=== PATIENT | female | born 1990 | race American Indian/Alaskan Native ===

== ENCOUNTER 2020-02-25 00:43 | Observation (INO) | payer OTHER ==
[2020-02-25] MEDS ORDERED: ONDANSETRON 4 MG/2 ML INJ IV ONE (02:17)
--- NOTE | 2020-02-25 02:17 | Emergency Department Report ---
ED Abdominal Pain HPI - General Chief Complaint: Abdominal Pain Stated Complaint: VOMITING BLOOD PUI?: No Time Seen by Provider: 02/25/20 02:09 Source: patient Mode of arrival: Ambulatory Limitations: No Limitations - History of Present Illness Initial Comments: Patient is a 29-year-old female that presents emergency room with complaints of abdominal pain and nausea and vomiting and vomiting blood. Patient states she has vomited approximately 20 times. Patient states her nausea vomiting abdominal pain started yesterday. Patient states that her symptoms are worsening. Patient states she also began to vomit blood the last few times she vomited. Patient denies fever and chills. Patient states the abdominal pain is in her epigastric region. Patient states is nonradiating. Patient states she is unable to hold any fluids down. Patient denies recent travel. Patient denies recent international travel. Patient denies exposure to the novel coronavirus. Patient denies sick contacts. Patient denies fever and chills. Patient denies cough. Patient denies diarrhea. Patient denies coming in contact with anybody with symptoms of the novel coronavirus. MD Complaint: abdominal pain -: Sudden Location: epigastric Radiation: none Migration to: no migration Severity: severe Severity scale (0 -10): 10 Quality: stabbing Consistency: constant Improves With: rest Worsens With: eating, vomiting, movement Associated Symptoms: nausea, vomiting, hematemesis. denies: diarrhea, fever, chills, constipation, dysuria, hematochezia, melena, hematuria, anorexia, syncope - Related Data Home Medications Medication Instructions Recorded Confirmed Last Taken No Known Home Medications [No 02/25/20 02/25/20 Unknown Reported Home Medications] Allergies Allergy/AdvReac Type Severity Reaction Status Date / Time No Known Allergies Allergy Unverified 05/29/15 14:51 ED Review of Systems ROS: Stated complaint: VOMITING BLOOD Other details as noted in HPI Constitutional: denies: chills, fever Eyes: denies: eye pain, eye discharge, vision change ENT: denies: ear pain, throat pain Respiratory: denies: cough, shortness of breath, wheezing Cardiovascular: denies: chest pain, palpitations Endocrine: no symptoms reported Gastrointestinal: abdominal pain, nausea, vomiting, hematemesis. denies: diarrhea, constipation, melena, hematochezia Genitourinary: denies: urgency, dysuria, discharge Musculoskeletal: denies: back pain, joint swelling, arthralgia Skin: denies: rash, lesions Neurological: denies: headache, weakness, paresthesias Psychiatric: denies: anxiety, depression Hematological/Lymphatic: denies: easy bleeding, easy bruising ED Past Medical Hx - Past Medical History Previous Medical History?: Yes Hx HIV: Yes - Surgical History Past Surgical History?: No - Family History Family history: no significant - Social History Smoking Status: Never Smoker Substance Use Type: None - Medications Home Medications: Home Medications Medication Instructions Recorded Confirmed Last Taken Type No Known Home Medications [No 02/25/20 02/25/20 Unknown History Reported Home Medications] ED Physical Exam - General Limitations: No Limitations General appearance: alert, in no apparent distress - Head Head exam: Present: atraumatic, normocephalic - Eye Eye exam: Present: normal appearance - ENT ENT exam: Present: mucous membranes moist - Neck Neck exam: Present: normal inspection - Respiratory Respiratory exam: Present: normal lung sounds bilaterally. Absent: respiratory distress - Cardiovascular Cardiovascular Exam: Present: regular rate, normal rhythm. Absent: systolic murmur, diastolic murmur, rubs, gallop - GI/Abdominal GI/Abdominal exam: Present: soft, tenderness (Epigastric tenderness to palpation.), normal bowel sounds - Extremities Exam Extremities exam: Present: normal inspection - Back Exam Back exam: Present: normal inspection - Neurological Exam Neurological exam: Present: alert, oriented X3 - Psychiatric Psychiatric exam: Present: normal affect, normal mood - Skin Skin exam: Present: warm, dry, intact, normal color. Absent: rash ED Course Vital Signs 02/25/20 02/25/20 01:33 05:05 Temperature 97.9 F Pulse Rate 89 87 Respiratory 18 16 Rate Blood Pressure 127/85 Blood Pressure 125/87 [right arm] O2 Sat by Pulse 100 99 Oximetry - Reevaluation(s) Reevaluation #1: I discussed all results with patient. I discussed plan of care with patient. Patient agrees with plan of care and admission. Patient to be admitted to the hospitalist service. 02/25/20 04:45 - Consultations Consultation #1: I discussed case with GI, Dr. DECKER. Dr. DECKER wants patient to be admitted to the hospital service, IV PPI and n.p.o. now 02/25/20 04:34 Consultation #2: Hospitalist consulted for admission. Hospitalist to admit patient. 02/25/20 04:46 ED Medical Decision Making - Lab Data Result diagrams: 02/25/20 01:46 02/25/20 01:46 - Radiology Data Radiology results: report reviewed CT ABDOMEN AND PELVIS WITH CONTRAST HISTORY: Epigastric pain, nausea, vomiting COMPARISON: None TECHNIQUE: Routine abdominal and pelvic CT exam performed following intravenous contrast administration. Patient received 100 mL IV Omnipaque 300. All CT scans at this location are performed using CT dose reduction for ALARA by means of automated exposure control. FINDINGS: CT ABDOMEN: Lung Bases: No significant abnormality. Liver: No significant abnormality. Biliary: No significant abnormality. Spleen: No significant abnormality. Unenlarged. Pancreas: No significant abnormality. Adrenals: No significant abnormality. Kidneys: No significant abnormality. Lymphatics: No lymphadenopathy. Vasculature: No significant abnormality. Bowel/Peritoneum: No significant abnormality. No free air. No free fluid. Normal appendix. CT PELVIC: : Uterus and ovaries appear normal for age. There is a small amount of free fluid in the pelvis. Lymphatics: No lymphadenopathy. Osseous Structures: No aggressive appearing osseous lesions. Additional Findings: None IMPRESSION: 1. No acute findings. - Medical Decision Making Patient is a 29-year-old female that presents emergency room with complaints of epigastric pain and nausea and vomiting and vomiting blood. Patient states over the last few days, the patient is vomited 20-30 times. Patient states the last few times she vomited she had copious amounts of blood in her vomitus. Patient had labs done which were essentially unremarkable. Patient had a CT scan of the abdomen due to the amount of pain she had and the CT scan of the abdomen was negative for acute finding. Patient given Dilaudid in ER for pain. Patient given Zofran for nausea. Patient given fluids in the ER. I consulted GI on the patient's case and recommendations were received from GI. GI recommended Protonix IV, n.p.o., fluids and admission. Patient admitted to the hospitalist service for further evaluation treatment. - Differential Diagnosis Gastroenteritis, gastritis, epigastric pain, vomiting blood, n/v Critical Care Time: Yes Critical care time in (mins) excluding proc time.: 35 Critical care attestation.: If time is entered above; I have spent that time in minutes in the direct care of this critically ill patient, excluding procedure time. Critical Care Time: 35 minutes ED Disposition Clinical Impression: Dehydration Vomiting blood Qualifiers: Nausea presence: with nausea Qualified Code(s): K92.0 - Hematemesis Abdominal pain Qualifiers: Abdominal location: epigastric Qualified Code(s): R10.13 - Epigastric pain Nausea & vomiting Qualifiers: Vomiting type: unspecified Vomiting Intractability: intractable Qualified Code(s): R11.2 - Nausea with vomiting, unspecified Disposition: DC-09 OP ADMIT IP TO THIS HOSP Is pt being admited?: Yes Does the pt Need Aspirin: No Condition: Critical Time of Disposition: 04:47
[2020-02-25] MEDS ORDERED: ONDANSETRON 4 MG/2 ML INJ ONE (02:18)
[2020-02-25] MEDS ORDERED: SODIUM CHLORIDE 0.9% 1000 ML 1,000 ML IV ONE ×2 (02:18→04:47)
[2020-02-25 02:23] LABS: Basophils % (Auto) 0.1 % (0.0-1.8); Hematocrit 33.6 % (30.3-42.9); Hemoglobin 11.7 gm/dl (10.1-14.3); Lymphocytes # (Auto) 0.7 K/mm3 (1.2-5.4); Lymphocytes % (Auto) 10.1 % (13.4-35.0); Mean Corpuscular HGB Conc 35 % (30-34); Mean Corpuscular Volume 94 fl (79-97); Monocytes # (Auto) 0.2 K/mm3 (0.0-0.8); Monocytes % (Auto) 2.4 % (0.0-7.3); Platelet Count 275 K/mm3 (140-440); Red Blood Count 3.56 M/mm3 (3.65-5.03); Red Cell Distribution Width 14.1 % (13.2-15.2)
[2020-02-25] MEDS ORDERED: HYDROmorphone 1 MG/1 ML INJ IV ONE ×3 (02:45→04:06)
[2020-02-25 02:47] LABS: Alanine Aminotransferase 11 units/L (7-56); Albumin 4.4 g/dL (3.9-5); Blood Urea Nitrogen 11 mg/dL (7-17); Calcium 9.7 mg/dL (8.4-10.2); Hemolysis Index 0
[2020-02-25 02:51] LABS: BUN/Creatinine Ratio 18
--- NOTE | 2020-02-25 04:25 | Cat Scan Report ---
CT ABDOMEN AND PELVIS WITH CONTRAST HISTORY: Epigastric pain, nausea, vomiting COMPARISON: None TECHNIQUE: Routine abdominal and pelvic CT exam performed following intravenous contrast administrat ion. Patient received 100 mL IV Omnipaque 300. All CT scans at this location are performed using CT d ose reduction for ALARA by means of automated exposure control. FINDINGS: CT ABDOMEN: Lung Bases: No significant abnormality. Liver: No significant abnormality. Biliary: No significant abnormality. Spleen: No significant abnormality. Unenlarged. Pancreas: No significant abnormality. Adrenals: No significant abnormality. Kidneys: No significant abnormality. Lymphatics: No lymphadenopathy. Vasculature: No significant abnormality. Bowel/Peritoneum: No significant abnormality. No free air. No free fluid. Normal appendix. CT PELVIC: : Uterus and ovaries appear normal for age. There is a small amount of free fluid in the pelvis. Lymphatics: No lymphadenopathy. Osseous Structures: No aggressive appearing osseous lesions. Additional Findings: None IMPRESSION: 1. No acute findings. Signer Name: Alfred Hartman MD Signed: 02/25/2020 4:07 AM Workstation Name: [email or web address]
[2020-02-25 04:31] LABS: Bacteria,Urine 1+ /HPF (Negative); Bilirubin,Urine NEG (Negative); Blood,Urine SM (Negative); Color,Urine Red (Yellow); Mucus,Urine FEW /HPF; Protein,Urine <15 mg/dL mg/dL (Negative); Urobilinogen,Urine < 2.0 mg/dL (<2.0)
[2020-02-25] MEDS ORDERED: PANTOPRAZOLE 40 MG INJ IV ONE (04:47)
[2020-02-25] MEDS ORDERED: ACETAMINOPHEN 325 MG TAB PO PRN (05:34)
--- NOTE | 2020-02-25 05:46 | History and Physical Report ---
History of Present Illness Date of examination: 02/25/20 Date of admission: 02/25/20 04:47 Chief complaint: Nausea and Vomiting Vomiting Blood Abdominal pain History of present illness: 29-year-old -[place] female with known history of HIV with undetected vi ral load presents to the emergency room today complaining of nausea and vomiting with epigastric pain. Nausea vomiting is said to have started over the last 24 to 48 hours. She has had up to 20-30 episodes of vomiting. She is now having blood in her vomitus. Patient indicates that particular cup of coffee last night she just suddenly started vomiting. She denies any fever or chills, denies any sick contacts and no recent travel, no chest pain or shortness of breath, denies any diarrhea, denies any bright red blood per rectum. Patient denies any dizziness. Patient admits that she has been taking Goody powder for pain for a while. Last intake of Goody powder was 2 days ago. She has also indicated that she has had recurrent boils in her armpit over the years. The boils flares up especially when she is about to have her menstruation. She currently has a painful boil in her left armpit for which she has been taking the Goody powder for pain relief. Work-up in the emergency room today has been unremarkable. H&H has been stable. [employer] Operator has been consulted by the ER physician. Recommendation is to place patient on proton pump inhibitor and IV fluid. Past History Past Medical History: other (HIV positive. CD4 count unknwon.) Past Surgical History: No surgical history Social history: smoking (Occasionally) Family history: no significant family history Medications and Allergies Allergies Allergy/AdvReac Type Severity Reaction Status Date / Time No Known Allergies Allergy Unverified 05/29/15 14:51 Home Medications Medication Instructions Recorded Confirmed Last Taken Type No Known Home Medications [No 02/25/20 02/25/20 Unknown History Reported Home Medications] Active Meds: Active Medications Sodium Chloride (Nacl 0.9% 1000 Ml) 1,000 mls @ 250 mls/hr IV ONCE ONE Stop: 02/25/20 08:46 Last Admin: 02/25/20 04:58 Dose: 250 mls/hr Documented by: Review of Systems Constitutional: no fever, no chills Ears, nose, mouth and throat: no nasal congestion, no sore throat Cardiovascular: no chest pain, no palpitations Respiratory: no cough, no shortness of breath Gastrointestinal: abdominal pain (Epigastric), nausea, vomiting, hematemesis, no diarrhea, no BRBPR Genitourinary Female: no pelvic pain, no flank pain, no hematuria Musculoskeletal: no neck pain, no low back pain Integumentary: boils (In Axilla), no rash, no pruritis Neurological: no headaches, no confusion Psychiatric: no anxiety, no depression Exam - Constitutional Vitals: Temp Pulse Resp BP Pulse Ox 97.9 F 87 16 125/87 99 02/25/20 01:33 02/25/20 05:05 02/25/20 05:05 02/25/20 05:05 02/25/20 05:05 General appearance: Present: no acute distress, well-nourished - EENT Eyes: Present: PERRL, EOM intact. Absent: scleral icterus ENT: hearing intact, clear oral mucosa, dentition normal - Neck Neck: Present: supple, normal ROM - Respiratory Respiratory effort: normal Respiratory: bilateral: CTA - Cardiovascular Rhythm: regular Heart Sounds: Present: S1 & S2. Absent: gallop, systolic murmur, diastolic murmur, rub - Extremities Extremities: no ischemia, pulses intact, pulses symmetrical, No edema, Full ROM Peripheral Pulses: within normal limits - Abdominal General gastrointestinal: Present: soft, non-tender, non-distended, normal bowel sounds. Absent: mass - Integumentary Integumentary: Present: clear, warm, dry - Musculoskeletal Musculoskeletal: strength equal bilaterally - Psychiatric Psychiatric: appropriate mood/affect, intact judgment & insight, memory intact, cooperative - Neurologic Neurologic: CNII-XII intact, no focal deficits, moves all extremities - Additional findings Additional findings: Skin: Tender left axillary swelling.Firm. No obvious discharge. Results - Labs CBC & Chem 7: 02/25/20 01:46 02/25/20 01:46 Labs: Abnormal lab results 02/25/20 02/25/20 02/25/20 Range/Units 01:43 01:46 01:46 RBC 3.56 L (3.65-5.03) M/mm3 MCH 33 H (28-32) pg MCHC 35 H (30-34) % Lymph % (Auto) 10.1 L (13.4-35.0) % Lymph # (Auto) 0.7 L (1.2-5.4) K/mm3 Seg Neutrophils % 87.4 H (40.0-70.0) % Sodium 136 L (137-145) mmol/L Chloride 96.5 L (98-107) mmol/L Glucose 163 H (65-100) mg/dL Total Protein 10.4 H (6.3-8.2) g/dL Ur Specific [place] > 1.059 H (1.003-1.030) Assessment and Plan - Patient Problems (1) Upper GI hemorrhage Current Visit: Yes Status: Acute Plan to address problem: Possibly secondary to the intractable nausea and vomiting causing a Chika- Delaney tear versus use of Goody powder (NSAID). Patient made n.p.o. and placed on proton pump inhibitor. [employer] Operator-Dr. Tucker has been consulted (2) Nausea & vomiting Current Visit: Yes Status: Acute Qualifiers: Vomiting type: unspecified Vomiting Intractability: intractable Qualified Code(s): R11.2 - Nausea with vomiting, unspecified Plan to address problem: Patient placed on IV fluid and IV Zofran as needed. (3) Abdominal pain Current Visit: Yes Status: Acute Qualifiers: Abdominal location: epigastric Qualified Code(s): R10.13 - Epigastric pain Plan to address problem: Possibly secondary to gastritis and the accompanying nausea and vomiting . Patient placed on IV and adjust medication as needed. (4) Hidradenitis suppurativa Current Visit: Yes Status: Acute Plan to address problem: We will place patient on empiric IV antibiotics. We will place a consult to general surgery for evaluation. (5) History of HIV infection Current Visit: Yes Status: Acute Plan to address problem: CD4 count unknown. Patient indicates she has had undetected viral load. She goes to infectious disease clinic in [place] . (6) DVT prophylaxis Current Visit: Yes Status: Acute Plan to address problem: Patient on sequential compression device. (7) Full code status Current Visit: Yes Status: Acute
[2020-02-25] MEDS: HYDROmorphone 1 MG/1 ML INJ IV PRN ×3 (06:24→19:40)
[2020-02-25] MEDS: PIPERACIL/TAZOBACTA 4.5/NS 100 4.5 GM/100 ML VIAL IV SCH ×3 (06:25→21:19)
[2020-02-25] MEDS: ONDANSETRON 4 MG/2 ML INJ IV PRN ×2 (06:28→21:24)
[2020-02-25] MEDS: SODIUM CHLORIDE 0.9% 1000 ML 1,000 ML IV SCH ×2 (06:35→17:26)
--- NOTE | 2020-02-25 10:58 | Consultation ---
History of Present Illness Consult date: 02/25/20 Reason for consult: abdominal pain Chief complaint: Abdominal pain - History of present illness History of present illness: 29-year-old female with a history of peptic ulcer disease who presents to the em ergency room with complaints of epigastric abdominal pain, nausea, vomiting, diarrhea x1 day. The patient states that she often suffers from epigastric abdominal pain due to ulcer disease. This pain is sharp and intermittent and resolves quickly on its own. It does not radiate. However over the last 24 hours she states that the pain intensified and was accompanied by nausea and vomiting. There was also severe diarrhea at the same time. She denies melena or hematochezia. She does state that after multiple bouts of vomiting she noticed some blood streaking in her vomit which was dark red. That has now resolved. She states that she feels very hungry. Last EGD was 5 to 6 years ago. The patient does not take any medications for her ulcer. The patient also has a longstanding history of hidradenitis. She states that she sees a video operator at [facility] for this for the past several years. She has undergone multiple incision and drainage procedures. She states that the hidradenitis is exacerbated when she is on her menstrual cycle. She states that over the last several days the left axillary swelling has gotten much better. She states that the whole axilla and upper arm was swollen and now it is just a small area in the underarm. There was purulent drainage and now that has resolved. She denies any pain in the area. No fevers or chills. Past History Past Medical History: HIV/AIDS, other (Bilateral axillary hidradenitis) Past Surgical History: Other (Multiple bilateral axillary I&D for hidradenitis) Social history: smoking (Occasionally) Family history: no significant family history Medications and Allergies Allergies Allergy/AdvReac Type Severity Reaction Status Date / Time No Known Allergies Allergy Unverified 05/29/15 14:51 Home Medications Medication Instructions Recorded Confirmed Last Taken Type No Known Home Medications [No 02/25/20 02/25/20 Unknown History Reported Home Medications] Active Meds: Active Medications Acetaminophen (Tylenol) 650 mg PO Q4H PRN PRN Reason: Pain MILD(1-3)/Fever >100.5/[place] Hydromorphone HCl (Dilaudid) 0.5 mg IV Q3H PRN PRN Reason: Pain , Severe (7-10) Last Admin: 02/25/20 06:24 Dose: 0.5 mg Documented by: Sodium Chloride (Nacl 0.9% 1000 Ml) 1,000 mls @ 125 mls/hr IV DIRECT ALEX Last Admin: 02/25/20 06:35 Dose: 125 mls/hr Documented by: Piperacillin Sod/Tazobactam Sod (Zosyn/Ns 4.5gm/100ml) 4.5 gm in 100 mls @ 200 mls/hr IV Q8HR ALEX; Protocol Last Admin: 02/25/20 06:25 Dose: 200 mls/hr Documented by: Ondansetron HCl (Zofran) 4 mg IV Q8H PRN PRN Reason: Nausea And Vomiting Last Admin: 02/25/20 06:28 Dose: 4 mg Documented by: Sodium Chloride (Sodium Chloride Flush Syringe 10 Ml) 10 ml IV BID ALEX Sodium Chloride (Sodium Chloride Flush Syringe 10 Ml) 10 ml IV PRN PRN PRN Reason: LINE FLUSH Review of Systems All systems: negative (10 point ROS performed and negative except for that listed in HPI) Exam Vital Signs Temp Pulse Resp BP Pulse Ox 97.9 F 89 18 127/85 100 02/25/20 01:33 02/25/20 01:33 02/25/20 01:33 02/25/20 01:33 02/25/20 01:33 Narrative exam: Gen.: Awake, alert, oriented 3. No apparent distress ENT: Trachea midline. No lymphadenopathy. No scleral icterus or conjunctival pallor CV: S1, S2 present Respiratory: No audible wheezes Abdomen: Soft, nondistended, point TTP in epigastrum. No rebound, rigidity, guarding Extremities: No clubbing, cyanosis, edema. 1 cm area of fluctuance in the left axilla without surrounding induration or erythema. Minimal TTP. No drainage. Results - Labs 02/25/20 01:46 02/25/20 01:46 Abnormal lab results 02/25/20 02/25/20 02/25/20 Range/Units 01:43 01:46 01:46 RBC 3.56 L (3.65-5.03) M/mm3 MCH 33 H (28-32) pg MCHC 35 H (30-34) % Lymph % (Auto) 10.1 L (13.4-35.0) % Lymph # (Auto) 0.7 L (1.2-5.4) K/mm3 Seg Neutrophils % 87.4 H (40.0-70.0) % Sodium 136 L (137-145) mmol/L Chloride 96.5 L (98-107) mmol/L Glucose 163 H (65-100) mg/dL Total Protein 10.4 H (6.3-8.2) g/dL Ur Specific [place] > 1.059 H (1.003-1.030) Diabetes panel 02/25/20 Range/Units 01:46 Sodium 136 L (137-145) mmol/L Potassium 3.9 (3.6-5.0) mmol/L Chloride 96.5 L (98-107) mmol/L Carbon Dioxide 25 (22-30) mmol/L BUN 11 (7-17) mg/dL Creatinine 0.6 (0.6-1.2) mg/dL Glucose 163 H (65-100) mg/dL Calcium 9.7 (8.4-10.2) mg/dL AST 16 (5-40) units/L ALT 11 (7-56) units/L Alkaline Phosphatase 95 (35-129) units/L Total Protein 10.4 H (6.3-8.2) g/dL Albumin 4.4 (3.9-5) g/dL Calcium panel 02/25/20 Range/Units 01:46 Calcium 9.7 (8.4-10.2) mg/dL Albumin 4.4 (3.9-5) g/dL Pituitary panel 02/25/20 Range/Units 01:46 Sodium 136 L (137-145) mmol/L Potassium 3.9 (3.6-5.0) mmol/L Chloride 96.5 L (98-107) mmol/L Carbon Dioxide 25 (22-30) mmol/L BUN 11 (7-17) mg/dL Creatinine 0.6 (0.6-1.2) mg/dL Glucose 163 H (65-100) mg/dL Calcium 9.7 (8.4-10.2) mg/dL Adrenal panel 02/25/20 Range/Units 01:46 Sodium 136 L (137-145) mmol/L Potassium 3.9 (3.6-5.0) mmol/L Chloride 96.5 L (98-107) mmol/L Carbon Dioxide 25 (22-30) mmol/L BUN 11 (7-17) mg/dL Creatinine 0.6 (0.6-1.2) mg/dL Glucose 163 H (65-100) mg/dL Calcium 9.7 (8.4-10.2) mg/dL Total Bilirubin 0.50 (0.1-1.2) mg/dL AST 16 (5-40) units/L ALT 11 (7-56) units/L Alkaline Phosphatase 95 (35-129) units/L Total Protein 10.4 H (6.3-8.2) g/dL Albumin 4.4 (3.9-5) g/dL - Imaging CT scan - abdomen: report reviewed, image reviewed CT scan - pelvis: report reviewed, image reviewed Assessment and Plan 29 yo F with 1. hidradentitis of L axilla Plan: 1. warm compresses to left axilla 2. may dc with oral abx - keflex x7 days 3. Pt to follow up with established video operator at [facility] 4. Gi consult pending for abdominal pain 5. Gave patient option for I&D vs abx/conservative management. Pt does not want I&D as she states the area has improved significantly. No surgical intervention. D/W Dr. Yeh Thank you for this consultation. Please call with any questions or concerns. Evaluation and treatment of this patient was during the time of the national and state emergency arising from COVID19 coronavirus pandemic. Treatment and procedures performed meet the current and available best practice and guidelines for patient during the COVID pandemic.
--- NOTE | 2020-02-25 16:51 | Gastroenterology Consultation ---
History of Present Illness - Reason for Consult Consult date: 02/25/20 hematemsis, epigastric pain Requesting physician: GABY ENGLE - History of Present Illness This is a 29 yo female with h/o PUD, HIV (not on ARV) admitted for epigastric pain and nausea/vomiting. GI consulted for evaluation of hematemesis and abdominal pain. Patient reports having epigastric pain worsening since yesterday associated with nausea/vomiting. She had multiple bouts of vomiting, noted blood streak in the vomiting, then dark red blood. Since resolved. She continues to have epigastric pain. She also had diarrhea x 1 day. No blood in the stool or melena. She reports having on and off abdominal pain due to ulcers for years. Has been taking Goody Powder for her pain daily for close to 1 year now. No other medications. She had intermittent blacks stools about three times over the past 6 months with last episode 1 month ago. No prior colonoscopy. Reports EGD years ago. She was previously on medication for HIV but currently off. Sees ID clinic on [place]. Medication list reviewed. Past History Past Medical History: HIV/AIDS, other (Bilateral axillary hidradenitis) Past Surgical History: Other (Multiple bilateral axillary I&D for hidradenitis) Social history: smoking (Occasionally) Family history: no significant family history Medications and Allergies Allergies Allergy/AdvReac Type Severity Reaction Status Date / Time No Known Allergies Allergy Unverified 05/29/15 14:51 Home Medications Medication Instructions Recorded Confirmed Last Taken Type RX: No Known Home Medications [No 02/25/20 02/25/20 Unknown History Reported Home Medications] Active Meds: Active Medications Acetaminophen (Tylenol) 650 mg PO Q4H PRN PRN Reason: Pain MILD(1-3)/Fever >100.5/[place] Hydromorphone HCl (Dilaudid) 0.5 mg IV Q3H PRN PRN Reason: Pain , Severe (7-10) Last Admin: 02/25/20 13:36 Dose: 0.5 mg Documented by: Sodium Chloride (Nacl 0.9% 1000 Ml) 1,000 mls @ 125 mls/hr IV DIRECT ALEX Last Admin: 02/25/20 06:35 Dose: 125 mls/hr Documented by: Piperacillin Sod/Tazobactam Sod (Zosyn/Ns 4.5gm/100ml) 4.5 gm in 100 mls @ 200 mls/hr IV Q8HR ALEX; Protocol Last Admin: 02/25/20 13:43 Dose: 200 mls/hr Documented by: Ondansetron HCl (Zofran) 4 mg IV Q8H PRN PRN Reason: Nausea And Vomiting Last Admin: 02/25/20 06:28 Dose: 4 mg Documented by: Pantoprazole Sodium (Protonix) 40 mg IV BID ALEX Sodium Chloride (Sodium Chloride Flush Syringe 10 Ml) 10 ml IV BID ALEX Last Admin: 02/25/20 11:18 Dose: Not Given Documented by: Sodium Chloride (Sodium Chloride Flush Syringe 10 Ml) 10 ml IV PRN PRN PRN Reason: LINE FLUSH Review of Systems - Review of Systems All systems: negative Constitutional: no weight loss, no weight gain Ears, Nose, Throat: no difficulty swallowing Cardiovascular: no chest pain, no edema Respiratory: no cough, no shortness of breath Gastrointestinal: abdominal pain, nausea, vomiting, hematemesis, melena, no hematochezia Musculoskeletal: no gait dysfunction Neurological: no weakness Endocrine: no cold intolerance Hematologic/Lymphatic: no easy bruising Exam - Constitutional Vital Signs: Temp Pulse Resp BP Pulse Ox 98.1 F 91 H 18 124/75 100 02/25/20 13:23 02/25/20 13:23 02/25/20 13:23 02/25/20 13:23 02/25/20 13:23 General appearance: no acute distress - EENT ENT: hearing intact - Neck Neck: supple - Respiratory Respiratory effort: normal - Cardiovascular Rhythm: regular Heart Sounds: Present: S1 & S2 - Gastrointestinal General gastrointestinal: Present: soft, tender, non-distended, normal bowel sounds - Neurologic Neurological: alert and oriented x3 - Psychiatric Psychiatric: appropriate mood/affect - Labs CBC & Chem 7: 02/25/20 01:46 02/25/20 01:46 Lab Results: Laboratory Results - last 24 hr 02/25/20 02/25/20 02/25/20 01:43 01:46 01:46 WBC 6.9 RBC 3.56 L Hgb 11.7 Hct 33.6 MCV 94 MCH 33 H MCHC 35 H RDW 14.1 Plt Count 275 Lymph % (Auto) 10.1 L [place] % (Auto) 2.4 Eos % (Auto) 0.0 Baso % (Auto) 0.1 Lymph # (Auto) 0.7 L [place] # (Auto) 0.2 Eos # (Auto) 0.0 Baso # (Auto) 0.0 Seg Neutrophils % 87.4 H Seg Neutrophils # 6.0 Sodium 136 L Potassium 3.9 Chloride 96.5 L Carbon Dioxide 25 Anion Gap 18 BUN 11 Creatinine 0.6 Estimated GFR > 60 BUN/Creatinine Ratio 18 Glucose 163 H Calcium 9.7 Total Bilirubin 0.50 AST 16 ALT 11 Alkaline Phosphatase 95 Total Protein 10.4 H Albumin 4.4 Albumin/Globulin Ratio 0.7 Lipase 15 HCG, Qual Urine Color Red Urine Turbidity Clear Urine pH 6.0 Ur Specific [place] > 1.059 H Urine Protein <15 mg/dl Urine Glucose (UA) Neg Urine Ketones Tr Urine Blood Sm Urine Nitrite Neg Urine Bilirubin Neg Urine Urobilinogen < 2.0 Ur Leukocyte Esterase Neg Urine WBC (Auto) 1.0 Urine RBC (Auto) 6.0 U Epithel Cells (Auto) 5.0 Urine Bacteria (Auto) 1+ Urine Mucus Few 02/25/20 01:52 WBC RBC Hgb Hct MCV MCH MCHC RDW Plt Count Lymph % (Auto) [place] % (Auto) Eos % (Auto) Baso % (Auto) Lymph # (Auto) [place] # (Auto) Eos # (Auto) Baso # (Auto) Seg Neutrophils % Seg Neutrophils # Sodium Potassium Chloride Carbon Dioxide Anion Gap BUN Creatinine Estimated GFR BUN/Creatinine Ratio Glucose Calcium Total Bilirubin AST ALT Alkaline Phosphatase Total Protein Albumin Albumin/Globulin Ratio Lipase HCG, Qual Negative Urine Color Urine Turbidity Urine pH Ur Specific [place] Urine Protein Urine Glucose (UA) Urine Ketones Urine Blood Urine Nitrite Urine Bilirubin Urine Urobilinogen Ur Leukocyte Esterase Urine WBC (Auto) Urine RBC (Auto) U Epithel Cells (Auto) Urine Bacteria (Auto) Urine Mucus Assessment and Plan This is a 29 yo female with h/o PUD, HIV (not on ARV) admitted for epigastric pain and nausea/vomiting. GI consulted for evaluation of hematemesis and abdominal pain. # Hematemesis # Epigastric pain - ddx including MWT, PUD, gastritis in the setting of chronic NSAID use. - nausea/vomiting resolved. - Hgb at 11.9. - HD stable. Rec - will plan for EGD tomorrow. - clear liquids now and NPO MN - PPI IV bid. - monitor H/H.
--- NOTE | 2020-02-25 16:52 | Progress Note ---
Assessment and Plan Day #2 02/25/2020 (1) Upper GI hemorrhage Current Visit: Yes Status: Acute Plan to address problem: No further GI bleed For EGD in the morning tomorrow (2) Nausea & vomiting Current Visit: Yes Status: Acute Qualifiers: Vomiting type: unspecified Vomiting Intractability: intractable Qualified Code(s): R11.2 - Nausea with vomiting, unspecified Plan to address problem: Patient symptomatically better (3) Abdominal pain Current Visit: Yes Status: Acute Qualifiers: Abdominal location: epigastric Qualified Code(s): R10.13 - Epigastric pain Plan to address problem: Possibly secondary to gastritis and the accompanying nausea and vomiting . Patient placed on IV and adjust medication as needed. (4) Hidradenitis suppurativa Current Visit: Yes Status: Acute Plan to address problem: No incision and drainage as per surgery patient will be discharged on Keflex tomorrow after EGD History of HIV infection Current Visit: Yes Status: Acute Plan to address problem: CD4 count unknown. Patient indicates she has had undetected viral load. She goes to infectious disease clinic in [place] . (6) DVT prophylaxis Current Visit: Yes Status: Acute Plan to address problem: Patient on sequential compression device. (7) Full code status Current Visit: Yes Status: Acute Subjective Date of service: 02/25/20 Principal diagnosis: Upper GI bleed, hidradenitis Interval history: 29-year-old -[place] female with known history of HIV with undetected viral load presents to the emergency room today complaining of nausea and vomiting with epigastric pain. Nausea vomiting is said to have started over the last 24 to 48 hours. She has had up to 20-30 episodes of vomiting. She is now having blood in her vomitus. Patient indicates that particular cup of coffee last night she just suddenly started vomiting. She denies any fever or chills, denies any sick contacts and no recent travel, no chest pain or shortness of breath, denies any diarrhea, denies any bright red blood per rectum. Patient denies any dizziness. Patient admits that she has been taking Goody powder for pain for a while. Last intake of Goody powder was 2 days ago. She has also indicated that she has had recurrent boils in her armpit over the years. The boils flares up especially when she is about to have her menstruation. She currently has a painful boil in her left armpit for which she has been taking the Goody powder for pain relief. Work-up in the emergency room today has been unremarkable. H&H has been stable. Clinic Nurse has been consulted by the ER physician. Recommendation is to place patient on proton pump inhibitor and IV fluid. Patient is going to have EGD tomorrow Surgery consult appreciated patient to be discharged on oral antibiotics tomorrow Keflex 503 times a day for 10 days Objective - Constitutional Vitals: Vital Signs - 12hr 02/25/20 02/25/20 02/25/20 05:05 06:06 07:41 Temperature 98 F Pulse Rate 87 93 H Respiratory 16 18 Rate Blood Pressure 116/81 Blood Pressure 125/87 104/57 [right arm] O2 Sat by Pulse 99 98 Oximetry 02/25/20 13:23 Temperature 98.1 F Pulse Rate 91 H Respiratory 18 Rate Blood Pressure Blood Pressure 124/75 [right arm] O2 Sat by Pulse 100 Oximetry General appearance: Present: no acute distress, well-nourished - EENT Eyes: PERRL, EOM intact ENT: hearing intact, clear oral mucosa Ears: bilateral: normal - Neck Neck: supple, normal ROM - Respiratory Respiratory effort: normal Respiratory: bilateral: CTA - Breasts Breasts: normal - Cardiovascular Rhythm: regular Heart Sounds: Present: S1 & S2. Absent: gallop, rub Extremities: pulses intact, No edema, normal color, Full ROM Extremity abnormal: other (Left axillary hidradenitis) - Gastrointestinal General gastrointestinal: Present: soft, non-tender, non-distended, normal bowel sounds - Genitourinary Female genitourinary: normal - Integumentary Integumentary: clear, warm, dry - Musculoskeletal Musculoskeletal: 1, strength equal bilaterally - Neurologic Neurologic: moves all extremities - Psychiatric Psychiatric: memory intact, appropriate mood/affect, intact judgment & insight - Labs CBC & Chem 7: 02/26/20 07:13 02/26/20 07:13 Labs: Abnormal lab results 02/25/20 02/25/20 02/25/20 Range/Units 01:43 01:46 01:46 RBC 3.56 L (3.65-5.03) M/mm3 MCH 33 H (28-32) pg MCHC 35 H (30-34) % Lymph % (Auto) 10.1 L (13.4-35.0) % Lymph # (Auto) 0.7 L (1.2-5.4) K/mm3 Seg Neutrophils % 87.4 H (40.0-70.0) % Sodium 136 L (137-145) mmol/L Chloride 96.5 L (98-107) mmol/L Glucose 163 H (65-100) mg/dL Total Protein 10.4 H (6.3-8.2) g/dL Ur Specific [place] > 1.059 H (1.003-1.030)
[2020-02-25] MEDS: PANTOPRAZOLE 40 MG INJ IV SCH (21:19)
[2020-02-26] MEDS: HYDROmorphone 1 MG/1 ML INJ IV PRN ×2 (00:26→07:35)
[2020-02-26] MEDS: SODIUM CHLORIDE 0.9% 1000 ML 1,000 ML IV SCH (02:33)
[2020-02-26] MEDS: PIPERACIL/TAZOBACTA 4.5/NS 100 4.5 GM/100 ML VIAL IV SCH ×2 (05:11→13:50)
[2020-02-26] MEDS: ONDANSETRON 4 MG/2 ML INJ IV PRN (07:25)
[2020-02-26 07:47] LABS: Basophils % (Auto) 0.3 % (0.0-1.8); Eosinophils % (Auto) 0.1 % (0.0-4.3); Hematocrit 31.6 % (30.3-42.9); Hemoglobin 10.9 gm/dl (10.1-14.3); Lymphocytes # (Auto) 0.7 K/mm3 (1.2-5.4); Mean Corpuscular HGB Conc 34 % (30-34); Mean Corpuscular Volume 96 fl (79-97); Monocytes # (Auto) 0.2 K/mm3 (0.0-0.8); Monocytes % (Auto) 4.9 % (0.0-7.3); Platelet Count 225 K/mm3 (140-440)
[2020-02-26 07:59] LABS: INR 1.08 (0.87-1.13)
[2020-02-26 08:08] LABS: Blood Urea Nitrogen 6 mg/dL (7-17); Calcium 8.6 mg/dL (8.4-10.2); Hemolysis Index 2
[2020-02-26 08:09] LABS: BUN/Creatinine Ratio 10
[2020-02-26] MEDS ORDERED: SODIUM CHLORIDE 0.9% 1000 ML 1,000 ML IV SCH (09:00)
[2020-02-26] MEDS: PANTOPRAZOLE 40 MG INJ IV SCH (10:01)
--- NOTE | 2020-02-26 10:38 | Anesthesia Consultation ---
Anesthesia Consult and Med Hx Date of service: 02/26/20 - Airway Anesthetic Teeth Evaluation: Good ROM Head & Neck: Inadequate Mental/Hyoid Distance: Adequate Mallampati Class: Class II Intubation Access Assessment: Probably Good - Pulmonary Exam CTA: Yes - Cardiac Exam Cardiac Exam: RRR - Pre-Operative Health Status ASA Pre-Surgery Classification: ASA3, Emergency Proposed Anesthetic Plan: MAC - Pulmonary Hx Smoking: Yes Hx Respiratory Symptoms: No SOB: No Hx Sleep Apnea: No - Cardiovascular System Hx Hypertension: No Hx Coronary Artery Disease: No Hx Heart Attack/AMI: No Hx Heart Murmur: Yes Hx Peripheral Vascular Disease: No - Central Nervous System Hx Neuromuscular Disorder: No Hx Seizures: No Hx Psychiatric Problems: No - Gastrointestinal Hx Ulcer: No - Endocrine Hx Renal Disease: No Hx Liver Disease: No Hx Insulin Dependent Diabetes: No Hx Non-Insulin Dependent Diabetes: No Hx Thyroid Disease: No - Hematic Hx Anemia: Yes - Other Systems Hx Alcohol Use: Yes Hx Obesity: Yes (BMI 40.4kg) - Additional Comments Anesthesia Medical History Comments: Patient denied previous anesthesia complications
--- NOTE | 2020-02-26 10:43 | Anesthesia Day of Surgery ---
Anesthesia Day of Surgery - Day of Surgery Patient Examined: Yes Patient H&P Reviewed: Yes Patient is NPO: Yes Beta Blockers: No Cardiac Clearance: No Pulmonary Clearance: No
[2020-02-26] MEDS ORDERED: SODIUM CHLORIDE 0.9% 1000 ML 1,000 ML ONE (10:51)
[2020-02-26] MEDS ORDERED: ONDANSETRON 4 MG/2 ML INJ ONE (10:55)
[2020-02-26] MEDS ORDERED: propofoL 200 MG/20 ML VIAL IV ONE (10:56)
[2020-02-26] MEDS ORDERED: fentaNYL 100 MCG/2 ML INJ ONE (10:56)
[2020-02-26] MEDS ORDERED: LIDOCAINE MPF (2%) 20 MG/1 ML VIAL 5 ML ONE (11:00)
--- NOTE | 2020-02-26 11:12 | Operative Report ---
Operative Report Operative Report: Date:02/26/2020 Pre procedure diagnosis:Nausea, hematemesis, abdominal pain Post procedure diagnosis:gastritis, gastric erosion Procedure: Esophagogastroduodenoscopy with biopsies Endoscopist: Jonas Johnson MD Medications: Per anesthesia- see separate records for details Complications:none Estimated blood loss: None After careful discussion of the nature and purpose of the procedure, details of the technique, risks, benefits and alternatives, the patient gave consent. The patient was placed in the left lateral decubitus position and medicated by anesthesia- see separate records for details. The tip of the olympus video upper scope was passed per orum under direct view through the mouth and into the esophagus, stomach and duodenum. The scope was advanced to the secondportion of the duodenum without difficulty. The second portion of the duodenumwasnormal. The bulb revealed normal findings. The scope was withdrawn back into the stomach and the stomach gently insufflated with air. The antrum revealed mild erythematous mucosa. The scope was then retroflexed and partially withdrawn to inspect the proximal stomach. The fundus appeared normal. There was mild nonbleeding erosion in the cardia, likely due to retching and trauma. The gastric body showed erythematous mucosa. Biopsies obtained from the antrum and the body. The scope was then withdrawn in the forward view. The EG junction was at 38 cm. The esophagus was normal. The procedure was well tolerated and the patient was observed in the GI recovery unit. IMPRESSION: 1. Mild gastritis in the antrum and the body. Biopsies obtained. No signs of bleeding noted. 2. Small erosions in the cardia, likely due to retching and trauma. No bleeding noted. 3. Normal esophagus exam. 4. Normal duodenum exam. Plan: 1. Resume diet. 2. Switch PPI to oral protonix once daily. 3. Avoid NSAIDs. 4. If tolerating diet, can discharge later today. Follow up in outpatient GI clinic. Jonas Alaniz (Fabio Johnson MD [facility]
--- NOTE | 2020-02-26 13:18 | Discharge Summary ---
Providers - Providers Date of Admission: 02/25/20 04:47 Date of discharge: 02/26/20 Attending physician: CURTIS HENNESSY 02/25/20 04:34 Consult to Physician [CONS] Routine Comment: Consulting Provider: ROSALINDA DECKER Physician Instructions: Reason For Exam: n/v, abd pain. vomiting blood 02/25/20 05:51 Consult to Physician [CONS] Routine Comment: Consulting Provider: MIGUELINA WILD Physician Instructions: Reason For Exam: Left axillary abscess ? Hidradenitis suppurativa Primary care physician: MAINFRAME SYSTEMS ENGINEER Hospitalization Condition: Critical Hospital course: Subjective Date of service: 02/26/20 Principal diagnosis: Upper GI bleed, hidradenitis Interval history: 29-year-old -[place] female with known history of HIV with undetected viral load presents to the emergency room today complaining of nausea and vomiting with epigastric pain. Nausea vomiting is said to have started over the last 24 to 48 hours. She has had up to 20-30 episodes of vomiting. She is now having blood in her vomitus. Patient indicates that particular cup of coffee last night she just suddenly started vomiting. She denies any fever or chills, denies any sick contacts and no recent travel, no chest pain or shortness of breath, denies any diarrhea, denies any bright red blood per rectum. Patient denies any dizziness. Patient admits that she has been taking Goody powder for pain for a while. Last intake of Goody powder was 2 days ago. She has also indicated that she has had recurrent boils in her armpit over the years. The boils flares up especially when she is about to have her menstruation. She currently has a painful boil in her left armpit for which she has been taking the Goody powder for pain relief. Work-up in the emergency room today has been unremarkable. H&H has been stable. Directional Drill Operator has been consulted by the ER physician. Recommendation is to place patient on proton pump inhibitor and IV fluid. Patient had EGD which showed gastritis Surgery consult appreciated patient to be discharged on oral antibiotics tomor row Keflex 503 times a day for 10 days Assessment and Plan Day #2 02/25/2020 (1) Upper GI hemorrhage Current Visit: Yes Status: Acute Plan to address problem: No further GI bleed EGD showed gastritis (2) Nausea & vomiting Current Visit: Yes Status: Acute Qualifiers: Vomiting type: unspecified Vomiting Intractability: intractable Qualified Code(s): R11.2 - Nausea with vomiting, unspecified Plan to address problem: Patient symptomatically better (3) Abdominal pain Current Visit: Yes Status: Acute Qualifiers: Abdominal location: epigastric Qualified Code(s): R10.13 - Epigastric pain Plan to address problem: Abdominal pain improved (4) Hidradenitis suppurativa Current Visit: Yes Status: Acute Plan to address problem: No incision and drainage as per surgery patient will be discharged on Keflex tomorrow after EGD History of HIV infection Current Visit: Yes Status: Acute Plan to address problem: CD4 count unknown. Patient indicates she has had undetected viral load. She goes to infectious disease clinic in [place] . (6) DVT prophylaxis Current Visit: Yes Status: Acute Plan to address problem: Patient on sequential compression device. (7) Full code status Current Visit: Yes Status: Acute Disposition: DC-01 TO HOME OR SELFCARE Time spent for discharge: 35 minutes - Discharge Diagnoses (1) Abdominal pain Status: Acute Qualifiers: Abdominal location: epigastric Qualified Code(s): R10.13 - Epigastric pain (2) Hidradenitis suppurativa Status: Acute (3) History of HIV infection Status: Acute (4) Nausea & vomiting Status: Acute Qualifiers: Vomiting type: unspecified Vomiting Intractability: intractable Qualified Code(s): R11.2 - Nausea with vomiting, unspecified (5) Upper GI hemorrhage Status: Acute (6) DVT prophylaxis Status: Acute Core Measure Documentation - Palliative Care Palliative Care/ Comfort Measures: Not Applicable - Core Measures Any of the following diagnoses?: none Exam - Constitutional Vitals: Temp Pulse Resp BP Pulse Ox 99.2 F 88 16 128/82 97 02/26/20 10:18 02/26/20 11:40 02/26/20 11:40 02/26/20 11:40 02/26/20 11:40 General appearance: Present: no acute distress, well-nourished - EENT Eyes: Present: PERRL ENT: hearing intact, clear oral mucosa - Neck Neck: Present: supple, normal ROM - Respiratory Respiratory effort: normal Respiratory: bilateral: CTA - Cardiovascular Heart Sounds: Present: S1 & S2. Absent: rub, click - Extremities Extremities: pulses symmetrical, No edema Extremity abnormal: other (Left axillary hidradenitis draining some whitish material but no I&D as per surgery) Peripheral Pulses: within normal limits - Abdominal General gastrointestinal: Present: soft, non-tender, non-distended, normal bowel sounds Female genitourinary: Present: normal - Integumentary Integumentary: Present: clear, warm, dry - Musculoskeletal Musculoskeletal: gait normal, strength equal bilaterally - Psychiatric Psychiatric: appropriate mood/affect, intact judgment & insight - Neurologic Neurologic: CNII-XII intact, moves all extremities Plan Activity: no restrictions Diet: regular Follow up with: PRIMARY CARE, [Primary Care Provider] - 7 Days
[2020-02-26 13:44] VITALS: BP 113/61
--- NOTE | 2020-02-26 14:25 | Post Anesthesia Evaluation ---
- Post Anesthesia Evaluation Patient Participated: Yes Airway Patent: Yes Stable Respiratory Function: Yes Nausea/Vomiting: No Temp > 96.8F: Yes Pain Manageable: Yes Adequeate Hydration: Yes Anesthesia Complications: No Block Receding Appropriately: Not Applicable Patient on Ventilator: No
[2020-02-27] MEDS ORDERED: PANTOPRAZOLE 40 MG TAB PO SCH (07:30)
== END 2020-02-26 14:34 | disposition home or self-care (01) ==
LOC: ED 00:43 → 3B-SURG 04:47
PROVIDERS: ADMIT Internal Medicine Geriatric Medicine; ATTEND Internal Medicine
DX: K92.0 Hematemesis (principal); K29.70 Gastritis, unspecified, without bleeding; K25.9 Gastric ulcer, unspecified as acute or chronic, without hemorrhage or perforation; R10.13 Epigastric pain; L73.2 Hidradenitis suppurativa; F17.200 Nicotine dependence, unspecified, uncomplicated; Z79.899 Other long term (current) drug therapy
CPT/HCPCS: 36415; 43239; 74177; 80048; 80053; 81001; 83690; 84703; 85025; 85610; 88305; 88342; 96361; 96365; 96366; 96375; 96376; 99291; C9113; G0378; J1170; J2405; J2543; J2704; J3010; J7030; Q9967

== ENCOUNTER 2020-03-19 10:42 | Emergency (ER) | payer SELFPAY ==
[2020-03-19 10:55] VITALS: BP 139/91
--- NOTE | 2020-03-19 10:57 | Event Note ---
ED Screening Note Date of service: 03/19/20 Time: 10:56 ED Screening Note: The patient was evaluated in the emergency department for symptoms described in the history of present illness. He/she was evaluated in the context of the global COVID-19 pandemic, which necessitated consideration that the patient might be at risk for infection with the virus that causes COVID-19. Institutional protocols and algorithms that pertain to the evaluation of patients at risk for COVID-19 are in a state of rapid change based on information released by regulatory bodies including the CDC and federal and state organizations. These policies and algorithms were followed during the patient's care in the emergency department. Please note that these policies, procedures and recommendations changed on a rapid basis. 29-year-old -Pakistani female who was recently discharged here from our hospital for upper GI bleed. Patient states that she had some Chika-Delaney tears when she was last seen here and now presents with nausea and vomiting abdominal pain. This initial assessment/diagnostic orders/clinical plan/treatment(s) is/are subject to change based on patients health status, clinical progression and re- assessment by fellow clinical providers in the ED. Further treatment and workup at subsequent clinical providers discretion. Patient/guardian urged not to elope from the ED as their condition may be serious if not clinically assessed and managed. Initial orders include: CBC CMP hCG urine and urinalysis has been ordered.
[2020-03-19] MEDS ORDERED: FAMOTIDINE 20 MG/2 ML INJ IV ONE (12:00)
[2020-03-19] MEDS ORDERED: KETOROLAC 30 MG/1 ML INJ IV ONE (12:00)
[2020-03-19] MEDS ORDERED: SODIUM CHLORIDE 0.9% 1000 ML 1,000 ML IV ONE (12:00)
[2020-03-19] MEDS ORDERED: ONDANSETRON 4 MG/2 ML INJ IV ONE ×2 (12:00→13:21)
[2020-03-19] MEDS ORDERED: DICYCLOMINE 20 MG/2 ML INJ IM ONE (12:00)
[2020-03-19 12:05] LABS: Basophils % (Auto) 0.3 % (0.0-1.8); Eosinophils % (Auto) 0.4 % (0.0-4.3); Hematocrit 32.2 % (30.3-42.9); Hemoglobin 10.8 gm/dl (10.1-14.3); Lymphocytes # (Auto) 0.8 K/mm3 (1.2-5.4); Lymphocytes % (Auto) 22.9 % (13.4-35.0); Mean Corpuscular HGB Conc 34 % (30-34); Mean Corpuscular Volume 96 fl (79-97); Monocytes # (Auto) 0.2 K/mm3 (0.0-0.8); Monocytes % (Auto) 5.9 % (0.0-7.3); Platelet Count 241 K/mm3 (140-440); Red Blood Count 3.36 M/mm3 (3.65-5.03); Red Cell Distribution Width 14.4 % (13.2-15.2)
[2020-03-19 12:18] LABS: Alanine Aminotransferase 12 units/L (7-56); Blood Urea Nitrogen 6 mg/dL (7-17); Calcium 9.2 mg/dL (8.4-10.2); Hemolysis Index 5
[2020-03-19 12:31] LABS: BUN/Creatinine Ratio 10
--- NOTE | 2020-03-19 12:54 | Emergency Department Report ---
ED Abdominal Pain HPI - General Chief Complaint: Nausea/Vomiting/Diarrhea Stated Complaint: ABD PAIN/VOMITING Time Seen by Provider: 03/19/20 12:00 Source: patient Mode of arrival: Ambulatory Limitations: No Limitations - History of Present Illness Initial Comments: Patient is a 29-year-old F [place] female who has a recent history of gastritis. Patient was here approximately 2 weeks ago and had a EGD which showed that there was some antral irritation of the stomach. Patient states that yesterday her nausea vomiting returned she is having some mild diarrhea whenever she vomits. States she has some epigastric discomfort with no radiation. Pain is 10 out of 10. She denies fevers chills cough cold or congestion. Patient is CAT scan of the abdomen pelvis showed no acute abnormality on her last visit. Severity scale (0 -10): 10 - Related Data Previous Rx's Medication Instructions Recorded Last Taken Type Oxycodone HCl/Acetaminophen 1 each PO Q6HR PRN #12 tablet 02/26/20 Unknown Rx [Percocet 7.5/325 mg] Pantoprazole [Protonix TAB] 40 mg PO QDAC #30 tablet 02/26/20 Unknown Rx cephALEXin [Keflex] 500 mg PO Q6HR #40 capsule 02/26/20 Unknown Rx Dicyclomine [Bentyl] 20 mg PO QID #10 tablet 03/19/20 Unknown Rx Ondansetron [Zofran Odt] 4 mg PO Q8HR #10 tab.rapdis 03/19/20 Unknown Rx Allergies Allergy/AdvReac Type Severity Reaction Status Date / Time No Known Allergies Allergy Unverified 05/29/15 14:51 ED Review of Systems ROS: Stated complaint: ABD PAIN/VOMITING Other details as noted in HPI Comment: All other systems reviewed and negative ED Past Medical Hx - Past Medical History Previous Medical History?: Yes Hx Hypertension: No Hx Heart Attack/AMI: No Hx Liver Disease: No Hx Renal Disease: No Hx Seizures: No Hx HIV: Yes - Surgical History Past Surgical History?: No - Social History Smoking Status: Current Every Day Smoker Substance Use Type: Marijuana - Medications Home Medications: Home Medications Medication Instructions Recorded Confirmed Last Taken Type Oxycodone HCl/Acetaminophen 1 each PO Q6HR PRN #12 tablet 02/26/20 Unknown Rx [Percocet 7.5/325 mg] Pantoprazole [Protonix TAB] 40 mg PO QDAC #30 tablet 02/26/20 Unknown Rx cephALEXin [Keflex] 500 mg PO Q6HR #40 capsule 02/26/20 Unknown Rx Dicyclomine [Bentyl] 20 mg PO QID #10 tablet 03/19/20 Unknown Rx Ondansetron [Zofran Odt] 4 mg PO Q8HR #10 tab.rapdis 03/19/20 Unknown Rx ED Physical Exam - General Limitations: No Limitations General appearance: alert, in no apparent distress - Head Head exam: Present: atraumatic, normocephalic - Eye Eye exam: Present: normal appearance - ENT ENT exam: Present: normal orophraynx, mucous membranes moist - Neck Neck exam: Present: normal inspection - Respiratory Respiratory exam: Present: normal lung sounds bilaterally. Absent: respiratory distress, wheezes, rales, rhonchi - Cardiovascular Cardiovascular Exam: Present: regular rate, normal rhythm. Absent: systolic murmur, diastolic murmur, rubs, gallop - GI/Abdominal GI/Abdominal exam: Present: soft, tenderness (epigastric), normal bowel sounds. Absent: distended, guarding, rebound, rigid - Extremities Exam Extremities exam: Present: normal inspection - Back Exam Back exam: Present: normal inspection - Neurological Exam Neurological exam: Present: alert, oriented X3 - Psychiatric Psychiatric exam: Present: normal affect, normal mood - Skin Skin exam: Present: warm, dry, intact, normal color. Absent: rash ED Course Vital Signs 03/19/20 10:52 Temperature 98.4 F Pulse Rate 80 Respiratory 20 Rate Blood Pressure 139/91 O2 Sat by Pulse 100 Oximetry ED Medical Decision Making - Lab Data Result diagrams: 03/19/20 11:00 03/19/20 11:00 Lab Results 03/19/20 03/19/20 03/19/20 Range/Units 11:00 11:00 11:50 WBC 3.4 L (4.5-11.0) K/mm3 RBC 3.36 L (3.65-5.03) M/mm3 Hgb 10.8 (10.1-14.3) gm/dl Hct 32.2 (30.3-42.9) % MCV 96 (79-97) fl MCH 32 (28-32) pg MCHC 34 (30-34) % RDW 14.4 (13.2-15.2) % Plt Count 241 (140-440) K/mm3 Lymph % (Auto) 22.9 (13.4-35.0) % Barry % (Auto) 5.9 (0.0-7.3) % Eos % (Auto) 0.4 (0.0-4.3) % Baso % (Auto) 0.3 (0.0-1.8) % Lymph # (Auto) 0.8 L (1.2-5.4) K/mm3 Barry # (Auto) 0.2 (0.0-0.8) K/mm3 Eos # (Auto) 0.0 (0.0-0.4) K/mm3 Baso # (Auto) 0.0 (0.0-0.1) K/mm3 Seg Neutrophils % 70.5 H (40.0-70.0) % Seg Neutrophils # 2.4 (1.8-7.7) K/mm3 Sodium 137 (137-145) mmol/L Potassium 3.6 (3.6-5.0) mmol/L Chloride 102.5 (98-107) mmol/L Carbon Dioxide 27 (22-30) mmol/L Anion Gap 11 mmol/L BUN 6 L (7-17) mg/dL Creatinine 0.6 (0.6-1.2) mg/dL Estimated GFR > 60 ml/min BUN/Creatinine Ratio 10 % Glucose 118 H (65-100) mg/dL Calcium 9.2 (8.4-10.2) mg/dL Total Bilirubin 0.40 (0.1-1.2) mg/dL AST 18 (5-40) units/L ALT 12 (7-56) units/L Alkaline Phosphatase 83 (35-129) units/L Total Protein 8.5 H (6.3-8.2) g/dL Albumin 4.0 (3.9-5) g/dL Albumin/Globulin Ratio 0.9 % Lipase 27 (13-60) units/L - Radiology Data Date: 02/26/20 11:09 Initialization Date: 02/26/20 11:09 Operative Report Operative Report: Date:02/26/2020 Pre procedure diagnosis:Nausea, hematemesis, abdominal pain Post procedure diagnosis:gastritis, gastric erosion Procedure: Esophagogastroduodenoscopy with biopsies Endoscopist: Jonas Johnson MD Medications: Per anesthesia- see separate records for details Complications:none Estimated blood loss: None After careful discussion of the nature and purpose of the procedure, details of the technique, risks, benefits and alternatives, the patient gave consent. The patient was placed in the left lateral decubitus position and medicated by anesthesia- see separate records for details. The tip of the olympus video upper scope was passed per orum under direct view through the mouth and into the esophagus, stomach and duodenum. The scope was advanced to the secondportion of the duodenum without difficulty. The second portion of the duodenumwasnormal. The bulb revealed normal findings. The scope was withdrawn back into the stomach and the stomach gently insufflated with air. The antrum revealed mild erythematous mucosa. The scope was then retroflexed and partially withdrawn to inspect the proximal stomach. The fundus appeared normal. There was mild nonbleeding erosion in the cardia, likely due to retching and trauma. The gastric body showed erythematous mucosa. Biopsies obtained from the antrum and the body. The scope was then withdrawn in the forward view. The EG junction was at 38 cm. The esophagus was normal. The procedure was well tolerated and the patient was observed in the GI recovery unit. IMPRESSION: 1. Mild gastritis in the antrum and the body. Biopsies obtained. No signs of bleeding noted. 2. Small erosions in the cardia, likely due to retching and trauma. No bleeding noted. 3. Normal esophagus exam. 4. Normal duodenum exam. Plan: 1. Resume diet. 2. Switch PPI to oral protonix once daily. 3. Avoid NSAIDs. 4. If tolerating diet, can discharge later today. Follow up in outpatient GI clinic. Jonas Alaniz (Fabio Johnson MD [facility] - Medical Decision Making Patient hydrated and given medication for symptomatic relief. Patient to follow back up with gastroenterology. She is taking Protonix at this time and will add Bentyl and Zocharmaine Critical care attestation.: If time is entered above; I have spent that time in minutes in the direct care of this critically ill patient, excluding procedure time. ED Disposition Clinical Impression: Gastritis Disposition: DC-01 TO HOME OR SELFCARE Is pt being admited?: No Does the pt Need Aspirin: No Condition: Stable Instructions: Gastritis (ED), Diet for Ulcers and Gastritis (ED) Referrals: [facility] [Provider Group] - 3-5 Days Time of Disposition: 15:04
[2020-03-19] MEDS ORDERED: MORPHINE 4 MG/1 ML INJ IV ONE (13:21)
[2020-03-19] MEDS ORDERED: PANTOPRAZOLE 40 MG INJ IV ONE (13:22)
== END 2020-03-19 15:31 | disposition home or self-care (01) ==
LOC: ED 10:42
DX: K29.70 Gastritis, unspecified, without bleeding (principal); F12.90 Cannabis use, unspecified, uncomplicated; F17.200 Nicotine dependence, unspecified, uncomplicated; Z21 Asymptomatic human immunodeficiency virus [HIV] infection status; Z79.899 Other long term (current) drug therapy
CPT/HCPCS: 36415; 80053; 83690; 85025; 96361; 96372; 96374; 96375; 96376; 99283; C9113; J0500; J1885; J2270; J2405; J7030

== ENCOUNTER 2020-04-01 07:19 | Emergency (ER) | payer SELFPAY ==
[2020-04-01 07:35] VITALS: BP 120/91
--- NOTE | 2020-04-01 11:12 | Emergency Department Report ---
Chief Complaint: Medical Clearance Stated Complaint: STOMACH PAIN Time Seen by Provider: 04/01/20 11:08 - HPI History of Present Illness: The patient was evaluated in the emergency department for symptoms described in the history of present illness. He/she was evaluated in the context of the global COVID-19 pandemic, which necessitated consideration that the patient might be at risk for infection with the virus that causes COVID-19. Institutional protocols and algorithms that pertain to the evaluation of patients at risk for COVID-19 are in a state of rapid change based on information released by regulatory bodies including the CDC and federal and state organizations. These policies and algorithms were followed during the patient's care in the emergency department. Please note that these policies, procedures and recommendations changed on a rapid basis. 29-year-old -[place] female presents to the emergency room stating she needs a refill on her medications. Patient states that she has had abdominal pain for 2 months and was told to follow-up with a credit union teller. Patient states that she has appointment on the 24th of this month. Patient states that she needs a refill on her Percocet and her Bentyl and Zofran. - Exam Vital Signs: Vital Signs 04/01/20 07:29 Temperature 98.2 F Pulse Rate 76 Respiratory 16 Rate Blood Pressure 120/91 O2 Sat by Pulse 100 Oximetry Physical Exam: Patient is alert and oriented x3 no acute distress Lung exam no accessory muscles use Ambulatory without difficulty full range of motion of all extremities. MSE screening note: Focused history and physical exam performed. Due to findings the following was ordered: 29-year-old -Hung[place] female presents to the emergency room stating she needs a refill on her medications. Patient states that she has had abdominal pain for 2 months and was told to follow-up with a credit union teller. Patient states that she has appointment on the 24th of this month. Patient states that she needs a refill on her Percocet and her Bentyl and Zofran. Informed patient that we are not able to refill her Percocet that she can try taking Tylenol [id number]. Patient became irate was not able to listen to the other recommendations of getting [id number] Pepcid or omeprazole. Patient had to be escorted out of the emergency room by physical security engineer secondary to threatening the staff and cussing. ED Disposition for MSE Disposition: MED SCREENING EXAM-LEFT Is pt being admited?: No Does the pt Need Aspirin: No Condition: Stable Referrals: PRIMARY CARE, [Primary Care Provider] - 3-5 Days
== END 2020-04-01 12:28 | disposition left against medical advice (07) ==
LOC: ED 07:19
DX: R10.9 Unspecified abdominal pain (principal); Z53.21 Procedure and treatment not carried out due to patient leaving prior to being seen by health care provider